=== PATIENT | male | born 1950 | race Caucasian/White ===

== ENCOUNTER 2017-04-25 07:02 | Inpatient (IN) | payer OTHER ==
[2017-04-25] VITALS (13 sets, daily range): BP systolic 91–124; BP diastolic 57–76; PULSE 48–80; RESP 9–21; Ht 185.4 cm; Wt 91.1 kg
[~2017-04-25] VITALS: Ht 185.4 cm; Wt 91.1 kg
[~2017-04-25 07:02] MED LIST: ALBU8.5H3 INH; ALBU8.5H5 INH; ALDS PO; ASPI-664 PO; AZIT500T3 PO; BECL8.7A INH; GUAI180L5 PO; INSU100I15 SC; ISOS5TAB23 PO; LISI-313 PO; LORA10CA PO; LOSA25TA5 PO; METF1000 PO; METO-429 PO; NIT4 SL; OMEP40CA6 PO; PRED20TA PO; RTPRO NEB
[2017-04-25] MEDS ORDERED: SITA1TAB PO (07:53)
[2017-04-25] MEDS ORDERED: LOSA25TA5 PO (07:53)
[2017-04-25] MEDS ORDERED: ASPI-664 PO (07:54)
[2017-04-25] MEDS ORDERED: FURO20TA3 PO (07:54)
[2017-04-25] MEDS ORDERED: LISI10TA2 PO (07:54)
[2017-04-25] MEDS ORDERED: ATOR10TA65 PO (07:55)
[2017-04-25] MEDS ORDERED: METO-319 PO (07:55)
[2017-04-25] MEDS ORDERED: SOD CHLORIDE 0.45% 1,000 ML IV SCH (08:00)
--- NOTE | 2017-04-25 08:31 | RADRPT ---
PROCEDURE: XR Chest. CLINICAL INDICATION: preop TECHNIQUE: Single frontal view of the chest was obtained COMPARISON: 08/16/15 FINDINGS: The heart is enlarged. There is a left-sided AICD in place. The thoracic aorta is calcified. The lungs are clear. There is no pleural effusion or pneumothorax. RPTAT: AA IMPRESSION: Mild cardiomegaly. Calcified aorta consistent with atherosclerotic disease. .Dmitriy Woodson MD, MD Date Time Electronically viewed and signed by .Dmitriy Woodson MD, on 04/25/2017 08:31 .S/
[2017-04-25 08:57] LABS: BASOPHILS % 0.7 % (0.0-2.0); EOSINOPHILS # 0.2 10^3/ul (0.0-0.5); EOSINOPHILS % 3.2 % (0.0-7.0); HEMATOCRIT 42.9 % (42.0-52.0); HEMOGLOBIN 14.6 g/dl (14.0-18.0); LYMPHOCYTES # 1.4 10^3/ul (0.8-2.9); LYMPHOCYTES % 23.9 % (15.0-51.0); MEAN CORPUSCULAR VOLUME 91.1 fl (82.0-101.0); MEAN PLATELET VOLUME 11.9 fl (7.4-10.4); MONOCYTE # 0.7 10^3/ul (0.3-0.9); NEUTROPHIL # 3.6 10^3/ul (1.6-7.5); PLATELET COUNT 147 10^3/UL (140-415); RED BLOOD COUNT 4.71 10^6/ul (4.70-6.10); RED CELL DISTRIBUTION WIDTH 12.6 % (11.5-14.5); WHITE BLOOD COUNT 5.9 10^3/ul (4.8-10.8)
[2017-04-25 09:14] LABS: CHOL/HDL RATIO 4.7 RATIO
[2017-04-25 09:15] LABS: ALBUMIN 4.4 g/dl (3.3-4.9); ALBUMIN/GLOBULIN RATIO 1.33; BILIRUBIN,INDIRECT 1.9 mg/dl (0-1.1); BILIRUBIN,TOTAL 1.9 mg/dl (0.2-1.3); TOTAL PROTEIN 7.7 g/dl (6.1-8.1)
[2017-04-25 09:17] LABS: CALCIUM 9.5 mg/dl (8.4-10.2); CREATININE 0.95 mg/dl (0.61-1.24); POTASSIUM 4.1 mmol/L (3.5-5.1)
[2017-04-25 09:28] LABS: INR 1.09; PARTIAL THROMBOPLASTIN TIME 30.8 Sec (25.0-35.0); PROTIME 14.1 Sec (12.2-14.2); PT RATIO 1.1
[2017-04-25] MEDS ORDERED: ACETAMINOPHEN 325 MG TAB ONE (10:58)
[2017-04-25] MEDS ORDERED: HEPARIN 1000 UNITS/ML 10 ML INJ ONE ×2 (12:02→12:18)
[2017-04-25] MEDS ORDERED: HEPARIN 1000 UNITS/NS (A-LINE) 1,000 ML ONE (12:02)
[2017-04-25] MEDS ORDERED: IODIXANOL LOCM 100 ML BTL ONE (12:02)
[2017-04-25] MEDS ORDERED: LIDOCAINE 1% (MDV) 20 ML INJ ONE (12:02)
[2017-04-25] MEDS ORDERED: FENTAnyl 50 MCG/ML VIAL ONE (12:03)
[2017-04-25] MEDS ORDERED: VERAPAMIL 5 MG INJ ONE (12:03)
[2017-04-25] MEDS ORDERED: NITROGLYCERIN (IC) 100 MCG/ML INJ ONE (12:03)
[2017-04-25] MEDS ORDERED: MIDAZOLAM 1 MG/ML 2 ML INJ ONE (12:03)
[2017-04-25] MEDS ORDERED: SOD CHLORIDE 0.9% 1,000 ML IV SCH (13:21)
[2017-04-25] MEDS ORDERED: ASPIRIN 325 MG TAB ONE (13:26)
[2017-04-25] MEDS ORDERED: CLOPIDOGREL 300 MG TAB ONE (13:26)
--- NOTE | 2017-04-25 13:27 | SIPON ---
Date/Time of Note Date/Time of Note DATE: 04/25/17 TIME: 13:26 Operative Report Preoperative Diagnosis 1.ABNORMAL mpi 2.chEST PAIN 2.CARDIOMYOPATHY Postoperative Diagnosis 1. Obstructive cad s/p ptca/stent x 1 to RCA/PLB Operation/Procedure Performed 1.[facility] 2.S/P PTCA/stent x 1 to RCA/PLB Surgeon see signature line assistant financial accountant 1.Cheryl Anesthesia: moderate sedation Estimated blood loss: minimal Transfusion Required none Specimen NA Grafts/Implants none Complications none ISIDORO MILLARD Apr 25, 2017 13:27
[2017-04-25] MEDS ORDERED: AL HYDROX/MG HYDROX/SIMETH 30 ML CUP PO PRN (13:30)
[2017-04-25] MEDS ORDERED: ZOLPIDEM 5 MG TAB PO PRN (13:30)
[2017-04-25] MEDS ORDERED: OXYCODONE/ACETAMINOPHEN (5/325) TAB PO PRN (13:30)
[2017-04-25] MEDS ORDERED: morphine 2 MG INJ IV PRN (13:30)
--- NOTE | 2017-04-25 18:01 | QN ---
Documentation Comment [id number] CUCO PATRICK MD Apr 25, 2017 18:01
[2017-04-25] MEDS ORDERED: ATORVASTATIN 10 MG TAB PO SCH (21:00)
[2017-04-26] VITALS (11 sets, daily range): BP systolic 118–128; BP diastolic 70–83; PULSE 49–68; RESP 16–20
[2017-04-26] MEDS: ACETAMINOPHEN 325 MG TAB PO PRN ×2 (04:58→13:17)
[2017-04-26 07:20] LABS: BASOPHILS % 0.4 % (0.0-2.0); EOSINOPHILS # 0.2 10^3/ul (0.0-0.5); EOSINOPHILS % 2.9 % (0.0-7.0); HEMOGLOBIN 13.9 g/dl (14.0-18.0); LYMPHOCYTES # 1.1 10^3/ul (0.8-2.9); LYMPHOCYTES % 21.9 % (15.0-51.0); MEAN CORPUSCULAR HEMOGLOBIN 29.8 pg (29.0-33.0); MEAN CORPUSCULAR HGB CONC 33.1 g/dl (32.0-37.0); MEAN CORPUSCULAR VOLUME 90.1 fl (82.0-101.0); MEAN PLATELET VOLUME 11.5 fl (7.4-10.4); MONOCYTE # 0.6 10^3/ul (0.3-0.9); MONOCYTES % 11.5 % (0.0-11.0); NEUTROPHIL # 3.2 10^3/ul (1.6-7.5); NEUTROPHILS % 62.7 % (39.0-77.0); PLATELET COUNT 129 10^3/UL (140-415); POSITIVE DIFF @See below; RED BLOOD COUNT 4.66 10^6/ul (4.70-6.10); RED CELL DISTRIBUTION WIDTH 12.9 % (11.5-14.5); WHITE BLOOD COUNT 5.2 10^3/ul (4.8-10.8)
[2017-04-26 07:42] LABS: CALCIUM 9.2 mg/dl (8.4-10.2); CHOL/HDL RATIO 5.1 RATIO; CREATININE 0.9 mg/dl (0.61-1.24); POTASSIUM 4.2 mmol/L (3.5-5.1)
[2017-04-26 07:54] LABS: CK-MB 1.63 ng/ml (0.0-2.4); TROPONIN-I 0.038 ng/ml (0.00-0.12)
[2017-04-26] MEDS ORDERED: ASPIRIN (EC) 81 MG TAB PO SCH (09:00)
[2017-04-26] MEDS ORDERED: METOPROLOL (XL) 50 MG TAB PO SCH (09:00)
[2017-04-26] MEDS ORDERED: LOSARTAN 25 MG TAB PO SCH (09:00)
[2017-04-26] MEDS ORDERED: LISINOPRIL 10 MG TAB PO SCH (09:00)
[2017-04-26] MEDS ORDERED: CLOPIDOGREL 75 MG TAB PO SCH (09:00)
[2017-04-26] MEDS ORDERED: ASPIRIN (EC) 325 MG TAB PO SCH (09:00)
--- NOTE | 2017-04-26 10:07 | CARRPT ---
DATE OF PROCEDURE: 04/25/2017 TYPE OF PROCEDURE: 1. Left heart catheterization. 2. Coronary angiography. 3. Percutaneous transluminal coronary angioplasty with placement of Synergy drug-eluting stent x1 t o right coronary artery posterolateral branch, 3.0 x 16 mm. 4. Moderate conscious sedation. ATTENDING PHYSICIAN: Isidoro Gama MD REFERRING PHYSICIAN: Dr. Yogesh Bundy. INDICATION: Outpatient procedure done for abnormal cardiac stress test done in the office. BRIEF HISTORY: Mr. Cardozo is a 66-year-old male with a history of hypertension, dyslipidemia, coron linnette artery disease, status post prior PTCA and stent placement, cardiomyopathy, decreased left ventr icular ejection fraction, who initially presented with complaints of substernal chest pain, worsenin g shortness of breath. The patient subsequently had an outpatient stress test revealing positive is chemia. The patient now presents for an outpatient left heart catheterization in order to assess fo r the possibility of significant obstructive coronary artery disease lending to the symptoms of ches t pain and positive stress test findings. DESCRIPTION OF PROCEDURE: After informed consent was obtained, the patient was brought to the [facility] cardiac catheterization lab, where his right radial area was prepped and yana ped in the usual sterile fashion. Lidocaine 2% was infiltrated into the right radial area in order to achieve adequate local anesthesia. Using modified Seldinger technique, the radial artery was can nulated and a 6-[place] arterial sheath was placed. A 6-[place] JL3.5 catheter was used to cannulate the left main coronary ostium. With contrast injection, multiple views of the left coronary arteria l system were obtained. A JL3.5 and a guidewire and a JR4 was used to cannulate the right coronary arterial ostium. With contrast injection, multiple views of the right coronary system were obtained . JR was then used to additionally cross the aortic valve. Left ventricular end-diastolic pressure was measured and pullback across the aortic valve to assess for significant gradient, which there w as not, and removed. Subsequently, at this time, the patient received an additional 3000 units of h eparin in order to achieve an adequate pre-interventional ACT, in addition to the 5000 she had recei mariano in a radial cocktail. Subsequently, a JR4 interventional guide was used to cannulate the right coronary arterial ostium. A 0.014 balanced weight guidewire was passed distal to the lesion in the right coronary artery. A 2.5 x 12 mm balloon was used to pre-dilate this lesion up to 16 atmosphere s and removed, and the lesion was stented with a 3.0 x 16 mm drug-eluting stent deployed at 16 atmos pheres x2. The stent delivery system was removed and there was just a small waist subsequently by a ngiographic imaging and, subsequently, a noncompliant balloon 3.25 x 8 mm was used first to further post-dilate this stent up to 18 atmospheres. The balloon was removed. Followup angiogram was obtai stormy revealing excellent result with deployment of the stent, FARZAD 3 flow throughout the vessel, no r esidual waist, and no signs of complication including perforation or dissection. Subsequently, at t his time, the interventional guide and guidewires were removed. Final angiographic images were take n after the patient received an additional 200 mcg of IC nitroglycerin; once given, revealing no com plications and excellent result. Subsequently, at this time, the interventional guide and guidewire s were removed. The patient's sheath was removed. TR band was applied. This completed the procedu re. There were no noted complications. FINDINGS: 1. Coronary angiography: Left main 4 mm with an ostial 20% to 30% stenosis. The circumflex proxim ally is a 2.5 mm small vessel that does not cover much territory. There exists a ramus branch 2.5 m m with an ostial 20% stenosis. The LAD proximally is a 3 mm vessel and its proximal portion has a w idely patent stent with very minimal in-stent restenosis. The remainder of LAD thereafter, there is no significant stenoses. There are 2 mid-branching diagonals with the superior branch being sub 2 mm, the inferior branch being a 2.5 mm vessel with no significant focal stenoses. The right coronar y proximally is a 4 mm vessel and, in its midportion, has stenoses up to approximately 30% to 40%. Thereafter, there is a widely patent stented zone with minimal in-stent restenosis approximately at 20%. The dominant vessel gives off a 2.5 mm PDA with no significant focal stenoses and a 3 mm poste rolateral branch, which in its mid distal portion, has an 80% stenosis. 2. PTCA and stent placement: Prior to PTCA and stent placement, an 80% stenosis in the mid distal posterolateral branch. Post-PTCA and stent placement, the patient had no residual stenosis, FARZAD 3 flow throughout the vessel, and no signs of complication including perforation or dissection. Measurement of left ventricular end diastolic pressure of 33, no significant aortic stenosis by grad ient. TOTAL FLUOROSCOPY TIME: 9.1 minutes. TOTAL CONTRAST: 60 mL. IMPRESSION: 1. Single vessel obstructive coronary artery disease involving a mid-distal lesion of the patient's posterolateral branch off the right coronary artery, status post successful percutaneous translumin al coronary angioplasty and stent placement x1 with drug-eluting stent. 2. Elevated left heart filling pressures. 3. No significant aortic stenosis by gradient. RECOMMENDATIONS: In light of procedure findings, at this time: 1. Maintain the patient on aspirin 325 mg 1 tab p.o. daily indefinitely. 2. Plavix 75 mg 1 tab p.o. for at least 1 year. 3. Maximize medical management. 4. Aggressive risk factor reduction. 5. The patient will be admitted to the ICU for post-intervention observation and continued manageme nt of his presenting symptoms. Dictated By: ISIDORO VILLANUEVA/CANDELARIO Conf#: [id number] DID#: [id number] CC: ISIDORO GAMA MD; YOGESH BUNDY MD;*End*
--- NOTE | 2017-04-26 14:50 | CONS ---
Date/Time of Note Date/Time of Note DATE: 04/26/17 TIME: 14:47 Assessment/Plan Assessment/Plan Additional Assessment/Plan CAD s/p stenting hypertension hyperlipidemia denies chest pain clinically and hemodynamically stable Continue Metoprolol Continue ASA and Plavix Continue losartan Continue Lipitor Consultation Date/Type/Reason Admit Date/Time Apr 25, 2017 at 17:19 Social History Smoking Status: Heavy tobacco smoker Exam/Review of Systems Vital Signs Vitals Vital Signs Date Time Temp Pulse Resp B/P Pulse Ox O2 Delivery O2 Flow Rate FiO2 04/26/17 12:14 68 04/26/17 11:47 98.1 19 121/72 98 04/25/17 15:28 Room Air Intake and Output 04/25/17 04/25/17 04/26/17 15:00 23:00 07:00 Intake Total 300 ml 500 ml Output Total 600 ml Balance -300 ml 500 ml Exam Constitutional: alert, oriented Head: atraumatic, normocephalic Neck: non-tender, supple Respiratory: clear to auscultation Cardiovascular: regular rate and rhythm Gastrointestinal: nl liver, spleen, non-tender, soft Extremities: normal pulses Results Result Diagram: 04/26/17 0652 04/26/17 0652 Results 24 hrs Laboratory Tests Test 04/25/17 18:05 04/26/17 06:52 Bedside Glucose 114 White Blood Count 5.2 Red Blood Count 4.66 L Hemoglobin 13.9 L Hematocrit 42.0 Mean Corpuscular Volume 90.1 Mean Corpuscular Hemoglobin 29.8 Mean Corpuscular Hemoglobin Concent 33.1 Red Cell Distribution Width 12.9 Platelet Count 129 L Mean Platelet Volume 11.5 H Neutrophils % 62.7 Lymphocytes % 21.9 Monocytes % 11.5 H Eosinophils % 2.9 Basophils % 0.4 Nucleated Red Blood Cells % 0.0 Neutrophils # 3.2 Lymphocytes # 1.1 Monocytes # 0.6 Eosinophils # 0.2 Basophils # 0.0 Nucleated Red Blood Cells # 0.0 Sodium Level 138 Potassium Level 4.2 Chloride Level 104 Carbon Dioxide Level 26 Anion Gap 12 Blood Urea Nitrogen 19 Creatinine 0.90 Glucose Level 173 Calcium Level 9.2 Creatine Kinase 79 Creatine Kinase Index 2.1 Creatinine Kinase MB (Mass) 1.63 Troponin I 0.038 Triglycerides Level 118 Cholesterol Level 139 LDL Cholesterol, Calculated 88 HDL Cholesterol 27 L Cholesterol/HDL Ratio 5.1 Medications Medications Current Medications Aspirin (Ecotrin) 325 mg DAILY PO Last administered on 04/26/17 08:44; Admin Dose 325 MG; Start 04/26/17 at 09:00 Clopidogrel Bisulfate (plaVIX) 75 mg DAILY PO Last administered on 04/26/17 08 :44; Admin Dose 75 MG; Start 04/26/17 at 09:00 Acetaminophen (Tylenol Tab) 650 mg Q4H PRN PO NON-CARDIAC PAIN LEVEL 1-3 Last administered on 04/26/17 13:17; Admin Dose 650 MG; Start 04/25/17 at 13:30 Oxycodone/ Acetaminophen (Percocet (5/ 325)) 1 tab Q4H PRN PO REPORTED NON- CARDIAC PAIN 4-7; Start 04/25/17 at 13:30 Morphine Sulfate (morphine) 1 mg Q1H PRN IV PAIN NOT RELIEVED BY OTHERS; Start 04/25/17 at 13:30 Al Hydrox/Mg Hydrox/Simethicone (Mag-Al Plus) 30 ml Q4H PRN PO GASTROINTESTINAL UPSET; Start 04/25/17 at 13:30 Atorvastatin Calcium (Lipitor) 10 mg QHS PO Last administered on 04/25/17 20: 44; Admin Dose 10 MG; Start 04/25/17 at 21:00 Lisinopril (Zestril) 10 mg QAM PO Last administered on 04/26/17 08:44; Admin Dose 10 MG; Start 04/26/17 at 09:00 Losartan Potassium (Cozaar) 25 mg DAILY PO Last administered on 04/26/17 08:44 ; Admin Dose 25 MG; Start 04/26/17 at 09:00 Metoprolol Succinate (Toprol Xl) 50 mg DAILY PO ; Start 04/26/17 at 09:00 Influenza Virus Vaccine (Fluzone) 0.5 ml ONCE ONCE IM* ; Start 04/27/17 at 09:00 ; Stop 04/27/17 at 09:01 GAY BRUMFIELD M.D. Apr 26, 2017 14:49
--- NOTE | 2017-04-26 15:48 | PN ---
Date/Time of Note Date/Time of Note DATE: 04/26/17 TIME: 15:47 Assessment/Plan VTE Prophylaxis VTE Prophylaxis Intervention: ambulation Lines/Catheters [facility] Urinary Cath still in place: No Assessment/Plan Chief Complaint/Hosp Course 1. S/p LHC 2. Nicotine dependence 3. CAD s/p stenting 4. hypertension,controlled 5. hyperlipidemia Problems: Assessment/Plan 1. discharge home if ok with dr Rodriguez 2. continue current regime Subjective 24 Hr Interval Summary Constitutional: improved, no complaints Cardiovascular: chest pain, edema, No lightheadedness, No no complaints, No orthopenea, No other, No palpitations, No paroxysmal nocturnal dyspnea Genitourinary: bleeding, dysuria, No discharge, No flank pain, No hematuria, No no complaints, No other Exam/Review of Systems Vital Signs Vitals Vital Signs Date Time Temp Pulse Resp B/P Pulse Ox O2 Delivery O2 Flow Rate FiO2 04/26/17 15:45 98.2 55 19 125/70 98 04/25/17 15:28 Room Air Intake and Output 04/25/17 04/25/17 04/26/17 15:00 23:00 07:00 Intake Total 300 ml 500 ml Output Total 600 ml Balance -300 ml 500 ml Exam Constitutional: alert, oriented Head: normocephalic ENMT: nl external ears & nose Respiratory: clear to auscultation Cardiovascular: regular rate and rhythm Gastrointestinal: soft Results Result Diagram: 04/26/17 0652 04/26/17 0652 Results 24 hrs Laboratory Tests Test 04/25/17 18:05 04/26/17 06:52 Bedside Glucose 114 White Blood Count 5.2 Red Blood Count 4.66 L Hemoglobin 13.9 L Hematocrit 42.0 Mean Corpuscular Volume 90.1 Mean Corpuscular Hemoglobin 29.8 Mean Corpuscular Hemoglobin Concent 33.1 Red Cell Distribution Width 12.9 Platelet Count 129 L Mean Platelet Volume 11.5 H Neutrophils % 62.7 Lymphocytes % 21.9 Monocytes % 11.5 H Eosinophils % 2.9 Basophils % 0.4 Nucleated Red Blood Cells % 0.0 Neutrophils # 3.2 Lymphocytes # 1.1 Monocytes # 0.6 Eosinophils # 0.2 Basophils # 0.0 Nucleated Red Blood Cells # 0.0 Sodium Level 138 Potassium Level 4.2 Chloride Level 104 Carbon Dioxide Level 26 Anion Gap 12 Blood Urea Nitrogen 19 Creatinine 0.90 Glucose Level 173 Calcium Level 9.2 Creatine Kinase 79 Creatine Kinase Index 2.1 Creatinine Kinase MB (Mass) 1.63 Troponin I 0.038 Triglycerides Level 118 Cholesterol Level 139 LDL Cholesterol, Calculated 88 HDL Cholesterol 27 L Cholesterol/HDL Ratio 5.1 Medications Medications Current Medications Aspirin (Ecotrin) 325 mg DAILY PO Last administered on 04/26/17 08:44; Admin Dose 325 MG; Start 04/26/17 at 09:00 Clopidogrel Bisulfate (plaVIX) 75 mg DAILY PO Last administered on 04/26/17 08 :44; Admin Dose 75 MG; Start 04/26/17 at 09:00 Acetaminophen (Tylenol Tab) 650 mg Q4H PRN PO NON-CARDIAC PAIN LEVEL 1-3 Last administered on 04/26/17 13:17; Admin Dose 650 MG; Start 04/25/17 at 13:30 Oxycodone/ Acetaminophen (Percocet (5/ 325)) 1 tab Q4H PRN PO REPORTED NON- CARDIAC PAIN 4-7; Start 04/25/17 at 13:30 Morphine Sulfate (morphine) 1 mg Q1H PRN IV PAIN NOT RELIEVED BY OTHERS; Start 04/25/17 at 13:30 Al Hydrox/Mg Hydrox/Simethicone (Mag-Al Plus) 30 ml Q4H PRN PO GASTROINTESTINAL UPSET; Start 04/25/17 at 13:30 Atorvastatin Calcium (Lipitor) 10 mg QHS PO Last administered on 04/25/17 20: 44; Admin Dose 10 MG; Start 04/25/17 at 21:00 Losartan Potassium (Cozaar) 25 mg DAILY PO Last administered on 04/26/17 08:44 ; Admin Dose 25 MG; Start 04/26/17 at 09:00 Metoprolol Succinate (Toprol Xl) 50 mg DAILY PO ; Start 04/26/17 at 09:00 Influenza Virus Vaccine (Fluzone) 0.5 ml ONCE ONCE IM* ; Start 04/27/17 at 09:00 ; Stop 04/27/17 at 09:01 DENZEL SIU Apr 26, 2017 15:48
--- NOTE | 2017-04-26 17:41 | PDOCDIS ---
Discharge Instructions CONDITION Patient Condition: Stable HOME CARE INSTRUCTIONS: Special Diet: carb controlled ACTIVITY: Activity Restrictions: Slowly Increase Activity FOLLOW UP/APPOINTMENTS Follow-up Plan f/u dr reyes 1 wk see pcp 1 wk CUCO PATRICK MD Apr 26, 2017 17:41
[2017-04-26] MEDS ORDERED: CLOP75TA28 PO (17:43)
[2017-04-26] MEDS ORDERED: ASPI325T32 PO (17:43)
[2017-04-27] MEDS ORDERED: INFLUENZA VIRUS VACCINE 0.5 ML (DISPENSING) IM* ONE (09:00)
--- NOTE | 2017-04-27 11:01 | RADRPT ---
Echocardiogram Report Patient Name: LISANDRO GOLDBERG Gender: Male Date: 1950 Study Date: 26-Apr-2017 Import/Export Freight Forwarder: Ashley [facility] Location: 5552 Ref. Physician: AMADO BRUMFIELD Quality: Adequate Procedures: Transthoracic echocardiogram with complete 2D, M-Mode, and doppler examination. Indications: Chest Pain. 2D/M Mode Doppler Measurement Value Normal Ranges Measurement Value Normal Ranges LVIDd 2D 4.4 3.5 - 5.6 cm AV Peak Chris 1.2 m/sec LVIDs 2D 3.4 2.1 - 4.1 cm AV Peak PG 6.0 mmHg FS 2D 23.0 % LVOT Peak Chris 0.8 m/sec LVPWd 2D 1.5 0.6 - 1.1 cm LVOT Peak PG 2.0 mmHg IVSd 2D 1.5 0.6 - 1.1 cm MV E Peak Chris 0.7 m/sec IVS/LVPW 2D 1.0 MV Decel Time 218 msec AoR Diam 2D 2.8 2.0 - 3.7 cm MR Peak PG 85.0 mmHg LA/Ao 2D 2 0 - 1 MR Peak Chris 4.6 m/sec EDV 2D 87.5 cm3 TR Peak Chris 3.4 m/sec ESV 2D 40.0 cm3 TR Peak PG 45.0 mmHg LA Dimen 2D 4.2 2.3 - 4.0 cm RVSP 60.0 mmHg Findings Left Ventricle: Normal left ventricular cavity size. Moderate concentric left ventricular hypertrophy. Mild left ventricular systolic dysfunction. Ejection fraction is visually estimated at 45 %. Abnormal Diastolic Function. Right Ventricle: Normal right ventricular size. Normal right ventricular systolic function. Pacemaker right heart. Left Atrium: There is mild enlargement of left atrium. Right Atrium: There is mild enlargement of right atrium. Mitral Valve: Mitral valve leaflets appear mildly thickened. Mild mitral annular calcification. Mild mitral valve regurgitation. Aortic Valve: Normal appearance of the aortic valve. No significant aortic stenosis or insufficiency. Tricuspid Valve: Normal appearance of the tricuspid valve. Estimated peak PA systolic pressure 60 mmHg. There is mild tricuspid regurgitation. Pulmonic Valve: Normal pulmonic valve appearance. There is trace pulmonic regurgitation. Pericardium: Normal pericardium with no significant pericardial effusion. Aorta: Normal aortic root. IVC: Dilated inferior vena cava with poor inspiratory collapse consistent with elevated right atrial pressures. Conclusions Normal left ventricular cavity size. Moderate concentric left ventricular hypertrophy. Mild left ventricular systolic dysfunction. Ejection fraction is visually estimated at 45 %. Abnormal Diastolic Function. Normal right ventricular size. Normal right ventricular systolic function. Pacemaker right heart. Mitral valve leaflets appear mildly thickened. Mild mitral annular calcification. Mild mitral valve regurgitation. Normal appearance of the aortic valve. No significant aortic stenosis or insufficiency. Normal appearance of the tricuspid valve. Estimated peak PA systolic pressure 60 mmHg. There is mild tricuspid regurgitation. Moderate Pulmonary Hypertension. Normal pericardium with no significant pericardial effusion. Electronically Signed By: Amado Brumfield 27-Apr-2017 11:00:51 -4900 Patient Name: LISANDRO GOLDBERG Study Date: 26-Apr-2017 [id number]
--- NOTE | 2017-04-27 18:12 | HP ---
DATE OF ADMISSION: 04/25/2017 Thank you, Dr. Mendez, for kindly asking me to see this patient in consultation. HISTORY OF PRESENT ILLNESS: The patient is a 66-year-old male with history of diabetes, hypertensio n, CAD and underwent coronary angiogram and PCI. The patient is being seen post-procedure. The pat ient had left heart catheterization, status post PTCA stent to RCA and PLV. The patient has hematoc rit 42.9, sodium 140, potassium 4.1, total bilirubin 1.9, direct bilirubin 0.00. PAST MEDICAL HISTORY: Diabetes, hypertension, CAD. ALLERGY HISTORY: NEGATIVE. FAMILY HISTORY: Denies. SOCIAL HISTORY: Denies. MEDICATION HISTORY: At home, patient is on: 1. Aspirin. 2. Lipitor. 3. Lasix. 4. Losartan. 5. Metoprolol. 6. Januvia. 7. Metformin. REVIEW OF HEENT: Unremarkable. RESPIRATORY: Unremarkable. CARDIOVASCULAR: Unremarkable. ABDOMEN: Unremarkable. EXTREMITIES: Unremarkable. CENTRAL NERVOUS SYSTEM: Unremarkable except complaining of back pain. PHYSICAL EXAMINATION: GENERAL: The patient is awake, alert. VITAL SIGNS: Pulse of 48, blood pressure 104/60. HEAD: Atraumatic, normocephalic. Pupils equal, reactive to light. NECK: Supple. No JVD. LUNGS: Clear. CARDIOVASCULAR: S1, S2 normal. ABDOMEN: Soft, nontender. Bowel sounds present. No palpable mass or hepatosplenomegaly. No guard ing, rebound tenderness. EXTREMITIES: No cyanosis, clubbing, or edema. CENTRAL NERVOUS SYSTEM: The patient is awake, alert with no focal deficit. LABORATORY DATA: Sodium 140, potassium 4.1, BUN of 19, creatinine 0.95. IMPRESSION: 1. Patient is status post coronary angiogram and percutaneous coronary intervention. 2. Cardiomegaly. 3. The patient has hypertension. 4. Diabetes mellitus. PLAN: To continue current treatment, aspirin, IV fluid, pain medication. Other recommendations per Dr. Gama. Laboratory data will be followed. Dictated By: CUCO PATRICK MD BS/NTS Conf#: [id number] DID#: [id number]
== END 2017-04-26 19:48 | disposition home or self-care (01) | DRG 247 ==
LOC: SDS 07:02 → INTOOBSV 16:11 → MS4 16:11 → OBSVTOIN 17:19
PROVIDERS: ADMIT Internal Medicine Nephrology; ATTEND Internal Medicine
PROC: 027034Z Dilation of Coronary Artery, One Artery with Drug-eluting Intraluminal Device, Percutaneous Approach (ICD-10-PCS; principal; 2017-04-26)
PROC: 4A023N7 Measurement of Cardiac Sampling and Pressure, Left Heart, Percutaneous Approach (ICD-10-PCS; 2017-04-26)
PROC: B211YZZ Fluoroscopy of Multiple Coronary Arteries using Other Contrast (ICD-10-PCS; 2017-04-26)
DX: I25.10 Atherosclerotic heart disease of native coronary artery without angina pectoris (principal); I10 Essential (primary) hypertension; F17.210 Nicotine dependence, cigarettes, uncomplicated; E78.5 Hyperlipidemia, unspecified; I25.5 Ischemic cardiomyopathy; E11.9 Type 2 diabetes mellitus without complications; Z79.82 Long term (current) use of aspirin; Z79.02 Long term (current) use of antithrombotics/antiplatelets; Z79.4 Long term (current) use of insulin; Z79.84 Long term (current) use of oral hypoglycemic drugs; Z95.810 Presence of automatic (implantable) cardiac defibrillator; Z95.5 Presence of coronary angioplasty implant and graft
CPT/HCPCS: 71010; 80048; 80053; 80061; 82550; 82553; 82962; 84484; 85025; 85610; 85730; 93005; 93306; 93458; G0378; C1725; C1874; C1887; C9600; J1644; J2250; J3010; Q9967